=== PATIENT | male | born 1975 | race Caucasian/White ===

== ENCOUNTER → 2017-03-26 | Outpatient (CLI) | payer BC, OTHER ==
[~2017-03-26] VITALS: Ht 182.9 cm; Wt 99.4 kg
[~2017-03-26] MED LIST: CEFAZOLIN 2000 MG/60 ML D5W IV SCH; LACTATED RINGER'S 1000ML 1,000 ML IV SCH; MULT-1027 PO; VNTHFA/IN INH
[2017-03-26 09:30] VITALS: BMI 28.0
[2017-03-26 14:39] VITALS: Ht 182.9 cm; Wt 99.4 kg
--- NOTE | 2017-03-26 15:03 | PAT Medication Instructions ---
Service Date Mar 26, 2017. Current Home Medication List Albuterol Hfa (Ventolin Hfa), 2-4 PUFFS INH Q6H PRN for Wheezing Multiple Vitamin (Multi Vitamin), 1 TAB PO QAM Medication Instructions For Your Scheduled Surgery - Hold the following medications the morning of surgery: Multiple Vitamin (Multi Vitamin), 1 TAB PO QAM - Take the following medications the morning of surgery with a sip of water: Albuterol Hfa (Ventolin Hfa), 2-4 PUFFS INH Q6H PRN for Wheezing (if needed) - Take the following medications as scheduled the night before surgery: Albuterol Hfa (Ventolin Hfa), 2-4 PUFFS INH Q6H PRN for Wheezing (if needed) If you have any questions please call us at [phone] or [phone] ( Katie Poe PA-C) or [phone]
--- NOTE | 2017-03-26 15:26 | DIAGNOSTIC IMAGING REPORT ---
CHEST PREADMISSION(PA/LAT) CLINICAL HISTORY: Preoperative chest COMPARISON STUDY: No previous studies for comparison. FINDINGS: The cardiac and mediastinal contours are normal. There is no evidence of focal pulmonary consolidation. There is no evidence of failure. No pleural effusions are visualized.[ IMPRESSION: No active disease in the chest. Electronically signed by: Jonel Finney M.D. 03/26/2017 3:25 PM Dictated Date/Time: 03/26/2017 3:24 PM
[2017-03-26 15:42] LABS: BASO % 0.2 %; BASO ABS # 0.01 K/uL (0-0.2); COMPLETE YES; EOS % 1.8 %; HEMATOCRIT 40.3 % (42-52); IG% 0.2 %; LYMPH % 25.7 %; MEAN CELL VOLUME 83.3 fL (80-100); MEAN CORPUSCULAR HEMOGLOBIN 28.5 pg (25-34); MEAN CORPUSCULAR HGB CONC 34.2 g/dl (32-36); MEAN PLATELET VOLUME 9.5 fL (7.4-10.4); MONO % 6.8 %; NEUT % 65.3 %; PLATELET COUNT 163 K/uL (130-400); RED BLOOD COUNT 4.84 M/uL (4.7-6.1); WHITE BLOOD COUNT 5.44 K/uL (4.8-10.8)
[2017-03-26 15:54] LABS: BUN/CREATININE RATIO 16.7 (10-20); CREATININE 1.1 mg/dl (0.60-1.40)
[2017-03-26 16:12] LABS: URINE APPEARANCE CLEAR (CLEAR); URINE BILIRUBIN NEG (NEG); URINE COLOR YELLOW; URINE NITRITE NEG (NEG); URINE SPECIFIC GRAVITY 1.021 (1.000-1.030); UROBILINOGEN NEG (NEG)
[2017-03-26 16:17] LABS: MANUAL MICROSCOPIC REQUIRED? NO; REVIEW REQ? NO
== END | disposition home or self-care (01) ==
LOC: C.LAB 08:00 → EDSTATUS 04-12 11:00
PROVIDERS: ATTEND Urology
DX: Z01.811 Encounter for preprocedural respiratory examination (principal); Z01.810 Encounter for preprocedural cardiovascular examination; Z01.812 Encounter for preprocedural laboratory examination